=== PATIENT | male | born 1965 | race Caucasian/White ===

== ENCOUNTER 2018-06-28 11:34 | Day surgery (SDC) | payer OTHER ==
[2018-06-26 14:09] VITALS: BMI 34.2
[2018-06-28] MEDS ORDERED: SUCCINYLCHOLINE CHLORIDE 200 MG/10 ML VIAL ONE (12:19)
[2018-06-28] MEDS ORDERED: PROPOFOL 20 ML ONE ×2 (12:19)
[2018-06-28] MEDS ORDERED: GLYCOPYRROLATE 0.2 MG/1 ML VIAL ONE (12:19)
[2018-06-28] MEDS ORDERED: fentaNYL CITRATE 250 MCG/5 ML VIAL ONE (12:19)
[2018-06-28] MEDS ORDERED: ROCURONIUM BROMIDE 50 MG/5 ML VIAL ONE (12:19)
[2018-06-28] MEDS ORDERED: LIDOCAINE HCL/PF 2% SDV 5ML VIAL ONE (12:19)
[2018-06-28] MEDS ORDERED: MIDAZOLAM HCL 2 MG/2 ML SINGLE DOSE VIAL ONE ×2 (12:20)
[2018-06-28] MEDS ORDERED: NEOSTIGMINE METHYLSULFATE 0.5 MG/ML - 10 ML MDV ONE (12:20)
[2018-06-28] MEDS ORDERED: ACETAMINOPHEN INJECTION 100 ML IVPB ONE (12:43)
[2018-06-28] MEDS ORDERED: BUPIVACAINE HCL/PF 0.5% (5MG/ML) 10 ML VIAL ONE (12:46)
[2018-06-28] MEDS ORDERED: DESFLURANE GAS 240 ML BOTTLE IH ONE (12:47)
[2018-06-28] MEDS ORDERED: ceFAZolin SODIUM 1 GM VIAL IVPB ONE (13:27)
[2018-06-28] MEDS ORDERED: BUPIVACAINE HCL/PF (5 MG/ML) 30 ML VIAL IJ ONE ×2 (13:36)
[2018-06-28] MEDS ORDERED: ONDANSETRON 4 MG/2 ML VIAL IVPUSH PRN (14:33)
[2018-06-28] MEDS ORDERED: oxyCODONE HCL 5 MG TABLET PO PRN ×2 (14:33)
[2018-06-28] MEDS ORDERED: PROMETHAZINE HCL 25 MG/1 ML VIAL IVPUSH PRN (14:33)
--- NOTE | 2018-06-28 14:34 | OP ---
Operative Note - Note: Operative Date: 06/28/18 Pre-Operative Diagnosis: Chronic cholecystitis Operation: Laproscopic cholecystectomy Post-Operative Diagnosis: Same as Pre-op Surgeon: Byron Kilpatrick Floodplain Manager: Luis Jiménez Anesthesia: General Estimated Blood Loss (mls): 10 Operative Report Dictated: Yes
--- NOTE | 2018-06-28 14:35 | SURG ---
Surgery Director Of Managed Services Note Director Of Managed Services: Luis Jiménez PA-C Date of Service: 06/28/18 Diagnosis: chronic cholecystitis Procedure: Laproscopic cholecystectomy I was present for the entirety of the operative procedure. For further detail, please refer to operative report.
--- NOTE | 2018-06-28 14:40 | PN ---
Progress Note (short form) - Note Progress Note: ANESTHESILOLOGY NOTE 52M s/p lap choleystectomy. Pt was a difficult intubation. Mask ventilation without difficulty with 100mm oral airway in place. Duirect laryngoscopy yielded a CL grade 3 view with MAC 3 blade. Switched to GlideScope blade #3 ( which was already on standby) which yielded a grade 1 view of vocal cords. However there was difficulty maneuvering the ETT through oropharynx to glottis but able to get tip of ETT throught cords but no further. Removed glidescope stylet and replaced with malleable stylet and successfully advanced ETT into trachea. In future, would advise first attempt with glidescope with fiberoptic bronchoscope on standby (at the very least).
[2018-06-28] MEDS ORDERED: LACTATED RINGERS SOLUTION 1,000 ML IV SCH (14:45)
[2018-06-28 18:32] VITALS: BP 149/91; PULSE 57; TEMP 98.7
--- NOTE | 2018-06-28 19:41 | OP ---
DATE OF OPERATION: 06/28/2018 PREOPERATIVE DIAGNOSIS: Acute and chronic cholecystitis. POSTOPERATIVE DIAGNOSIS: Acute and chronic cholecystitis. PROCEDURE: Laparoscopic cholecystectomy. SURGEON: Byron Kilpatrick MD NETWORKER: Luis Jiménez PA-C COMPLICATIONS: None. ESTIMATED BLOOD LOSS: Minimal. CONDITION: The patient tolerated the procedure well. This is a 52-year-old male who presents for elective cholecystectomy, history of right upper quadrant pain and cholelithiasis, referred for surgical evaluation. The patient underwent a complete evaluation. Risks and benefits were discussed. Informed consent was obtained. The patient was taken to the operating room, placed in supine position. After the induction of general anesthesia, he was prepped and draped in the usual sterile fashion. The operation was begun using the standard Allyson approach to enter the peritoneal cavity through a 1.5-cm periumbilical incision. Once a 12-mm port was introduced and insufflation of pressure of 15 mm was established, then three 5-mm ports were introduced, 1 in the epigastrium and 2 in the right upper quadrant. The patient was then positioned in reverse Trendelenburg position. The gallbladder was identified. It was retracted superiorly, laterally, and it appeared to be intrahepatic in nature. At this point, the infundibular ridge of the gallbladder was explored. It was dissected carefully with a [place] dissector to expose the cystic artery and the cystic duct. The cystic artery was circumferentially dissected initially and divided between Endoclips. The cystic duct was then carefully exposed and dissected with clear exposure of the critical view of safety. The common bile duct identified both proximally and distally to the cystic duct junction. At this point, after clear establishment of the critical view of safety, the cystic duct was then clipped and then double ligated with Endoclips and divided with EndoShears. The gallbladder was then dissected off the liver bed with the use of a hook dissector. Care was taken to avoid injury to the liver. In spite of the fact that this was an intrahepatic gallbladder, there was really minimal bleeding. The gallbladder was completely dissected and placed in an Endo Catch bag. A final check for hemostasis was performed with cautery. The right upper quadrant was irrigated and suctioned appropriately. The gallbladder was brought out through the umbilical port. The fascia at the umbilical port was closed with 0 Vicryl sutures in interrupted fashion. The skin was closed with 4-0 Monocryl. Dermabond was applied, and the patient was returned to the recovery room awake, alert, in stable condition. He tolerated the procedure well. Del [id number]
--- NOTE | 2018-06-30 14:28 | PATH ---
Surgical Pathology Report Patient Name: ALON WYATT [facility]. Rec. #: [id number] /Age/Gender: 1965 (Age: 52) / M Account: [id number] Location: AMBULATORY SURG Taken: 06/28/2018 Received: 06/29/2018 Reported: 06/30/2018 Physicians: Byron Kilpatrick M.D. Specimen(s) Received GALLBLADDER Clinical History Chronic cholecystitis/unspecified Abdominal pain Final Diagnosis GALLBLADDER, LAPAROSCOPIC CHOLECYSTECTOMY: CHRONIC CHOLECYSTITIS. Electronically Signed Marga Ziegler M.D. Gross Description Received in formalin, labeled "gallbladder," is a 7.5 x 2.8 x 2.5 cm. gallbladder with a 0.2 cm. in length portion of cystic duct attached. The outer surface is handy alvarado and varies from smooth to shaggy. The lumen contains green, tenacious bile. No choleliths are identified. The mucosa is green and velvety. The wall of the gallbladder ranges from 0.1-0.5 cm. in thickness. Globe Tester sections are submitted in one cassette. /06/29/2018 saudi06/29/2018
== END 2018-06-28 18:25 | disposition home or self-care (01) ==
LOC: JASUSAT 11:34
PROVIDERS: ATTEND Surgery
PROC: 0FT44ZZ Resection of Gallbladder, Percutaneous Endoscopic Approach (ICD-10-PCS; principal; 2018-06-28 13:00)
DX: K80.10 Calculus of gallbladder with chronic cholecystitis without obstruction (principal)
CPT/HCPCS: 88304-TC; 94760; J0131